=== PATIENT | female | born 1980 | race Caucasian/White ===

== ENCOUNTER → 2024-02-27 | Outpatient (CLI) | payer BC, SELFPAY ==
--- NOTE | 2024-02-27 13:00 | XR_ITS ---
Examination: Breast ultrasound complete, bilateral Date and time of exam: February 27, 2024 1319 hours INDICATIONS: Breast sonography 11/19/2019 nodules Technique: Real-time grayscale ultrasonographic imaging bilateral breasts, including all 4 quadrants as well as nipple retroareolar and axillary regions. Findings: Sonographic images right breast 1:00 cyst 15 x 14 mm 9:00 oval mass circumscribed 7 x 5 mm 9:00 oval mass circumscribed 7 x 7 mm Retroareolar cyst 8 x 5 mm Sonographic images left breast 3:00 cyst 15 x 13 mm 5:00 cyst 12 x 13 mm 6:00 cyst 15 x 14 mm No solid nodules Additional cysts, smaller IMPRESSION: BI-RADS Category 3: Probably benign findings Recommend 1 additional 6 month right breast sonogram follow-up to document stability of solid nodules described above
--- NOTE | 2024-02-27 14:15 | XR_ITS ---
Examination: Diagnostic digital mammography, bilateral Computer aided detection 3-D breast Tomosynthesis, bilateral Date and time of exam: February 27, 2024 1315 hours Compared to mammograms dating to October 20, 2010 INDICATIONS: Bilateral breast lumps 20 years, bilateral breast pain 10 years, nipple discharge left breast 18 years, family history, mother breast cancer Technique: Nonmagnified MLO, CC views of the breasts to been obtained, reconstructed from 3-D Tomosynthesis images. R2 computer aided detection program utilized for evaluation of suspicious masses and/or abnormal calcifications. 3-D Tomosynthesis images obtained. Findings: The breasts are extremely dense, which limits the sensitivity of mammography Benign calcifications. No suspicious masses Impression: BI-RADS Category 2: Benign findings Recommend yearly follow-up mammography Please see the right breast sonogram report today indicating 9:00 circumscribed nodule 7 x 7 mm, adjacent 9:00 nodule circumscribed 7 x 7 mm, recommend 6 month right breast sonogram follow-up.
== END | disposition home or self-care (01) ==
PROVIDERS: PCP Internal Medicine; Referring Provider Pharmacist; Visit Provider Pharmacist
DX: R92.323 Mammographic fibroglandular density, bilateral breasts (principal); N63.15 Unspecified lump in the right breast, overlapping quadrants; N60.01 Solitary cyst of right breast; N60.02 Solitary cyst of left breast
CPT/HCPCS: 76641; 77062; 77066; G0279

== ENCOUNTER → 2024-03-05 | Outpatient (CLI) | payer BC, SELFPAY ==
--- NOTE | 2024-03-05 13:42 | XR_ITS ---
Examination: PA lateral chest 2 views TECHNIQUE: Upright PA lateral chest 2 views Exam date and time: March 05, 2024 1354 hours Comparison October 06, 2019 INDICATIONS: Preop FINDINGS: Moderate hyperexpansion Pectus deformity Normal heart size No pneumonia or pulmonary edema Midthoracic dextroscoliosis 12 degrees IMPRESSION: No active disease
[2024-03-05 14:18] LABS: Collection Type, Urine Clean Catch
--- NOTE | 2024-03-05 14:28 | EKG_ITS ---
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
[2024-03-05 14:31] LABS: Basophils # (Auto) 0.1 Thou/mm3 (0.0-0.2); Basophils % (Auto) 1 % (0-2.5); Eosinophils # (Auto) 0.1 Thou/mm3 (0.0-0.5); Eosinophils % (Auto) 2 % (0-10); Hematocrit 43.2 % (36.0-46.0); Hemoglobin 14.7 g/dL (12.0-16.0); Immature Granulocytes % (Auto) 0 % (0-0); Immature Granulocytes Auto 0.01 Thou/mm3 (0.00-0.00); Lymphocytes # (Auto) 1.7 Thou/mm3 (1.0-4.8); Lymphocytes % (Auto) 29 % (10-50); Mean Corpuscular Hemoglobin 29.2 pg (25.0-35.0); Mean Corpuscular Volume 86 fL (80-100); Monocytes # (Auto) 0.5 Thou/mm3 (0.0-0.8); Monocytes % (Auto) 8 % (0-12); Neutrophils # (Auto) 3.4 Thou/mm3 (1.8-7.7); Neutrophils % (Auto) 59 % (37-80); Nucleated Red Blood Cell % 0 /100 WBC (0); Platelet Count 276 Thou/mm3 (140-440); RDW Standard Deviation 36.5 fL (36.4-46.3); Red Blood Count 5.03 Miln/mm3 (4.00-5.20); White Blood Count 5.7 Thou/mm3 (3.6-11.0)
[2024-03-05 14:38] LABS: Glucose Estimated Average 111 mg/dL (80-131); Hemoglobin A1C 5.5 % Hgb (4.8-6.0)
[2024-03-05 14:40] LABS: Bilirubin,Urine Negative (Negative); Blood,Urine Negative (Negative); Clarity,Urine Clear (Clear/Hazy); Color,Urine Colorless (Lt Yel-Yel); Glucose, Urine Negative (Negative); Ketones,Urine Negative (Negative); Leukocyte Esterase,Urine Negative (Negative); Nitrite,Urine Negative (Negative); PH,Urine 7.5 (5.0-7.0); Protein,Urine Negative (Neg - Trace); RBC,Urine 1 /hpf (0-3); Squamous Epithelial Cell,Urine 1 /hpf (0-5); Urobilinogen,Urine Negative mg/dL (0.0-1.0); WBC,Urine < 1 /hpf (0-5)
[2024-03-05 14:45] LABS: INR 0.9 (0.9-1.3); Partial Thromboplastin Time 26.5 Seconds (22.0-36.0); Prothrombin Time 10.4 Seconds (9.0-12.2)
[2024-03-05 15:02] LABS: Alanine Aminotransferase 26 U/L (10-49); Albumin, Serum 4.9 gm/dL (3.5-5.0); Albumin/Globulin Ratio 2.1 (1.2-2.2); Alkaline Phosphatase 54 U/L (46-116); Anion Gap 7 (7-16); Aspartate Amino Transferase 27 U/L (0-34); BUN/Creatinine Ratio 15 Ratio (12-20); Bilirubin,Direct 0.2 mg/dL (0.0-0.3); Bilirubin,Total 0.6 mg/dL (0.3-1.2); Blood Urea Nitrogen 12 mg/dL (9-23); Calcium 9.9 mg/dL (8.3-10.6); Calcium (Corrected) 9.9 mg/dL (8.5-10.1); Carbon Dioxide 28.4 mMol/L (20.0-31.0); Chloride 104 mMol/L (98-107); Creatinine (Component) 0.8 mg/dL (0.6-1.3); Globulin 2.3 gm/dL (2.3-3.5); Glucose 116 mg/dL (74-106); Osmolality,Calculated 278 (275-295); Potassium 4.2 mMol/L (3.4-5.1); Sodium 139 mMol/L (136-145); Total Protein 7.2 gm/dL (5.7-8.2); eGFR > 60 See Note
[2024-03-05 15:08] LABS: Vitamin B12 335 pg/mL (211-911)
== END | disposition home or self-care (01) ==
PROVIDERS: PCP Internal Medicine; Referring Provider Internal Medicine; Visit Provider Radiology Diagnostic Radiology
DX: Z01.818 Encounter for other preprocedural examination (principal); E03.9 Hypothyroidism, unspecified; D64.9 Anemia, unspecified
CPT/HCPCS: 36415; 71046; 80053; 81001; 82248; 82306; 82607; 83036; 85025; 85610; 85730; 93005

== ENCOUNTER → 2024-05-04 | Outpatient (CLI) | payer BC, SELFPAY ==
--- NOTE | 2024-05-04 16:03 | XR_ITS ---
Examination: Lumbar spine, 5 views Technique: Lumbar spine AP, lateral, coned lateral lower lumbar spine, bilateral obliques 5 views Exam date and time: May 04, 2024 at 1610 hrs. Indications: Lower back pain beginning 20 years ago Findings: Lumbar dextroscoliosis 12 degrees Moderate diffuse facet arthropathy No lumbar fracture Mild lumbar spondylosis Mild disc narrowing L4-L5, L5-S1 Impression: Mild disc narrowing L4-L5, L5-S1
--- NOTE | 2024-05-04 16:03 | XR_ITS ---
Examination: Thoracic spine 3 views Technique one AP lateral coned lateral upper dorsal spine 3 views Exam date and time: May 04, 2024 1636 hrs. Comparison December 22, 2010 Indications: Back pain 20 years Findings: Thoracic dextroscoliosis 15 degrees Mild osteopenia No acute fracture Mild diffuse thoracic disc narrowing Impression: Mild diffuse thoracic degenerative disc disease
== END | disposition home or self-care (01) ==
LOC: CDIM 15:46
PROVIDERS: Referring Provider Specialist; Visit Provider Specialist
DX: M48.061 Spinal stenosis, lumbar region without neurogenic claudication (principal); M48.07 Spinal stenosis, lumbosacral region; M51.34 Other intervertebral disc degeneration, thoracic region
CPT/HCPCS: 72072; 72110

== ENCOUNTER → 2024-05-11 | Outpatient (CLI) | payer BC, SELFPAY ==
--- NOTE | 2024-05-11 15:43 | XR_ITS ---
Examination: Cervical spine 4 views TECHNIQUE: Lateral, lateral flexion, lateral extension, AP cervical spine 4 views Exam date and time: May 11, 2024 1622 hours INDICATIONS: Neck pain several months. FINDINGS: Artificial disc C5-C6, C6-C7 with satisfactory alignment Adequate range of motion between flexion and extension Upper thoracic levoscoliosis 16 degrees No cervical fracture IMPRESSION: Artificial disc C5-C6, C6-C7 with satisfactory alignment
--- NOTE | 2024-05-11 15:43 | XR_ITS ---
Examination: Lumbar spine, 4 views Technique: Lumbar spine AP, lateral, standing lateral flexion standing lateral extension 4 views Exam date and time: May 11, 2024 1631 hours INDICATIONS: Back pain years FINDINGS: Lumbar dextroscoliosis 18 degrees Diffuse lumbar disc narrowing, moderate L4-L5, L5-S1 Marked decreased range of motion between flexion and extension IMPRESSION: No lumbar fracture Lumbar dextroscoliosis 18 degrees Marked decreased range of motion between flexion and extension
--- NOTE | 2024-05-11 15:43 | XR_ITS ---
Examination: Thoracic spine 3 views Technique one AP lateral coned lateral upper dorsal spine 3 views INDICATIONS: Upper back pain years. FINDINGS: Midthoracic dextroscoliosis 15 degrees Lower thoracic levoscoliosis 20 degrees No thoracic fracture Mild to moderate diffuse thoracic disc narrowing Mild thoracic spondylosis IMPRESSION: Scoliosis as above Mild to moderate diffuse thoracic degenerative disc disease
== END | disposition home or self-care (01) ==
PROVIDERS: PCP Internal Medicine; Referring Provider Specialist; Visit Provider Specialist
DX: M47.22 Other spondylosis with radiculopathy, cervical region (principal); M41.86 Other forms of scoliosis, lumbar region; M41.84 Other forms of scoliosis, thoracic region; M51.34 Other intervertebral disc degeneration, thoracic region
CPT/HCPCS: 72050; 72070; 72110

== ENCOUNTER → 2024-07-01 | Outpatient (CLI) | payer BC, SELFPAY ==
--- NOTE | 2024-07-01 14:30 | XR_ITS ---
Examination: MRI lumbar spine without contrast Date and time of exam: July 01, 2024 1513 hours Comparison December 28, 2021 INDICATIONS: Left-sided lower back pain difficulty walking 10 years worse the last 4 months Technique: Multiple MRI axial and sagittal sections lumbar spine. Sagittal T2-weighted images, TR 3500, TE 118 T1 weighted transverse sections, TR 688 T8.5, T2-weighted sagittal sections T1 weighted sagittal sections TR 621, TE 30 T2 axial sections, TR 4, 190, TE 84. Findings: Adequate alignment lumbar vertebral bodies on the lateral view Diffuse lumbar disc desiccation Normal marrow signal lumbar vertebral bodies No spondylolisthesis L5-S1 3 mm central lumbar disc bulge L4-L5 foraminal disc bulges, each 4 mm with no ganglionic compression L3-L4 8mm right paracentral disc bulge indenting the ventral right margin thecal sac More cephalad levels unremarkable IMPRESSION: L5-S1 3 mm central lumbar disc bulge L3-L4 8mm right paracentral disc bulge
== END | disposition home or self-care (01) ==
PROVIDERS: PCP Specialist; Referring Provider Specialist; Visit Provider Specialist
DX: M51.379 Other intervertebral disc degeneration, lumbosacral region without mention of lumbar back pain or lower extremity pain (principal); M51.369 Other intervertebral disc degeneration, lumbar region without mention of lumbar back pain or lower extremity pain
CPT/HCPCS: 72148

== ENCOUNTER → 2024-07-01 | Outpatient (CLI) | payer BC, SELFPAY ==
--- NOTE | 2024-07-01 15:58 | XR_ITS ---
Examination: CT lumbar spine, without contrast. 2-D sagittal reconstructions. 2-D coronal reconstructions. 3-D reconstructions. Date and time of exam:July 01, 2024 at 1639 hours Comparison 12/08/2019 INDICATIONS: Lower back pain 2 years, more severe back surgery 2019 CTDI: vol (mGy):18.1 DLP: (mGycm):646 Technique: Multiple 1.25 mm axial sections of the lumbar spine without intravenous contrast have been obtained. 2-D sagittal and coronal reconstructions have been obtained. 3-D reconstructions have been obtained. Low dose protocols were performed. One or more of the following dose reduction techniques were used; automated exposure control, adjustment of the mA and/or KV according to patient size, use of iterative reconstruction technique. Findings: Moderate osteopenia Lumbar dextroscoliosis 8 degrees No lumbar fracture Moderate disc narrowing posteriorly L5-S1 No spondylolisthesis Lumbar pedicles, laminae, transverse and posterior spinous processes intact L5-S1 2 mm central lumbar disc bulge L4-L5 moderate left neural foraminal stenosis with mild left L4 ganglionic compression L3-L4 6 mm right paracentral disc bulge L2-L3 no disc protrusion L1-L2 no disc protrusion IMPRESSION: Moderate disc narrowing L5-S1 No lumbar fracture L5-S1 2 mm central lumbar disc bulge Mild left L4 ganglionic compression L3-L4 6 mm right paracentral disc bulge
== END | disposition home or self-care (01) ==
LOC: CCTX 14:39
PROVIDERS: PCP Specialist; Referring Provider Specialist; Visit Provider Specialist
DX: M48.07 Spinal stenosis, lumbosacral region (principal); G95.20 Unspecified cord compression; M51.369 Other intervertebral disc degeneration, lumbar region without mention of lumbar back pain or lower extremity pain; M51.379 Other intervertebral disc degeneration, lumbosacral region without mention of lumbar back pain or lower extremity pain
CPT/HCPCS: 72131

== ENCOUNTER → 2024-11-30 | Outpatient (CLI) | payer BC, SELFPAY ==
[2024-11-30 16:07] LABS: Basophils # (Auto) 0.0 Thou/mm3 (0.0-0.2); Basophils % (Auto) 1 % (0-2.5); Eosinophils # (Auto) 0.2 Thou/mm3 (0.0-0.5); Eosinophils % (Auto) 3 % (0-10); Hematocrit 42.9 % (36.0-46.0); Hemoglobin 14.7 g/dL (12.0-16.0); Immature Granulocytes Auto 0.01 Thou/mm3 (0.00-0.00); Lymphocytes # (Auto) 2.2 Thou/mm3 (1.0-4.8); Lymphocytes % (Auto) 42 % (10-50); Mean Corpuscular HGB Conc 34.3 g/dl (31.0-37.0); Mean Corpuscular Hemoglobin 29.4 pg (25.0-35.0); Mean Corpuscular Volume 86 fL (80-100); Monocytes # (Auto) 0.4 Thou/mm3 (0.0-0.8); Monocytes % (Auto) 8 % (0-12); Neutrophils # (Auto) 2.5 Thou/mm3 (1.8-7.7); Neutrophils % (Auto) 47 % (37-80); Nucleated Red Blood Cell # 0.00 Thou/mm3 (0.00-0.00); Nucleated Red Blood Cell % 0 /100 WBC (0); Platelet Count 264 Thou/mm3 (140-440); RDW Standard Deviation 36.6 fL (36.4-46.3); Red Blood Count 5.00 Miln/mm3 (4.00-5.20); White Blood Count 5.3 Thou/mm3 (3.6-11.0)
[2024-11-30 16:24] LABS: Glucose Estimated Average 120 mg/dL (80-131); Hemoglobin A1C 5.8 % Hgb (4.8-6.0)
[2024-11-30 16:28] LABS: Vitamin D 25 Hydroxy Total 40.6 ng/mL (7.3-40.2)
[2024-11-30 16:33] LABS: Alanine Aminotransferase 30 U/L (10-49); Albumin, Serum 4.6 gm/dL (3.5-5.0); Albumin/Globulin Ratio 1.9 (1.2-2.2); Alkaline Phosphatase 62 U/L (46-116); Anion Gap 7 (7-16); Aspartate Amino Transferase 31 U/L (0-34); BUN/Creatinine Ratio 15 Ratio (12-20); Bilirubin,Total 0.5 mg/dL (0.3-1.2); Blood Urea Nitrogen 12 mg/dL (9-23); Calcium 10.0 mg/dL (8.3-10.6); Calcium (Corrected) 10.0 mg/dL (8.5-10.1); Carbon Dioxide 30.5 mMol/L (20.0-31.0); Cardiac Risk Estimate 2.8 RATIO (3.7-5.6); Chloride 104 mMol/L (98-107); Cholesterol 203 mg/dL (132-200); Creatinine (Component) 0.8 mg/dL (0.6-1.3); Free T3 3.1 pg/mL (2.3-4.2); Free T4 (Free Thyroxine) 1.72 ng/dL (0.89-1.76); Globulin 2.4 gm/dL (2.3-3.5); Glucose 99 mg/dL (74-106); HDL Cholesterol 73 mg/dL (40-60); LDL Cholesterol,Calculated 113 mg/dL (0-130); Osmolality,Calculated 280 (275-295); Potassium 4.5 mMol/L (3.4-5.1); Sodium 141 mMol/L (136-145); Thyroid Stimulating Hormone 2.77 uIU/mL (0.55-4.78); Total Protein 7.0 gm/dL (5.7-8.2); Triglycerides 87 mg/dL (30-150); eGFR > 60 See Note
== END | disposition home or self-care (01) ==
LOC: COPL 14:30
PROVIDERS: PCP Family Medicine; Referring Provider Nurse Practitioner Family; Visit Provider Nurse Practitioner Family
DX: L65.9 Nonscarring hair loss, unspecified (principal); M25.50 Pain in unspecified joint; E55.9 Vitamin D deficiency, unspecified; E04.9 Nontoxic goiter, unspecified; E06.3 Autoimmune thyroiditis; I95.9 Hypotension, unspecified; E03.9 Hypothyroidism, unspecified; R22.1 Localized swelling, mass and lump, neck
CPT/HCPCS: 36415; 80053; 80061; 82306; 83036; 84439; 84443; 84481; 85025

== ENCOUNTER → 2024-12-22 | Outpatient (CLI) | payer BC, SELFPAY ==
--- NOTE | 2024-12-22 14:00 | XR_ITS ---
Examination: Breast ultrasound complete, bilateral Date and time of exam: December 22, 2024, 1406 hours INDICATIONS: Bilateral breast pain and swelling beginning 2 years ago, history breast cyst aspirations Technique: Real-time grayscale ultrasonographic imaging bilateral breasts, including all 4 quadrants as well as nipple retroareolar and axillary regions. Findings: Sonographic images right breast 1:00 cyst 9 x 8 mm 9:00 solid nodule 7 x 5 mm Sonographic images left breast 12:00 cyst 5 x 5 mm 3:00 cyst 8 x 8 mm 3:00 cyst 15 x 14 mm 10:00 cyst 15 x 11 mm, no solid nodules IMPRESSION: BI-RADS Category 3: Probably benign findings Recommend 1 additional 6-month right breast sonogram follow-up to document stability of 9:00 solid nodule right breast
== END | disposition home or self-care (01) ==
PROVIDERS: PCP Family Medicine; Referring Provider Family Medicine; Visit Provider Family Medicine
DX: N63.15 Unspecified lump in the right breast, overlapping quadrants (principal)
CPT/HCPCS: 76641